=== PATIENT | female | born 1940 | race Caucasian/White ===

== ENCOUNTER 2017-01-09 03:08 | Emergency (ER) | payer MEDICARE ==
[~2017-01-09] VITALS: Ht 160 cm; Wt 46.0 kg
[~2017-01-09 03:08] MED LIST: BENZ1CAP34 PO; DOXY100T18 PO; FLON0.053; IPRAAER INH; LEVA500T PO; MEDR4PAK3 PO; OMPR20CCR PO; PRED50 PO; TRAM50 PO
[2017-01-09 03:11] VITALS: BP 167/83; PULSE 98; RESP 16; TEMP 98; O2SAT 96
[2017-01-09] MEDS ORDERED: PRIL20CA9 PO (03:24)
[2017-01-09 03:44] VITALS: RESP 16
[2017-01-09] MEDS ORDERED: SODIUM CHLOR 0.9% 1000 ML INJ 1,000 ML IV ONE (03:45)
[2017-01-09] MEDS ORDERED: SODIUM CHLORIDE 0.9% FLUSH 5 ML FLUSH IVF PRN (03:45)
[2017-01-09] MEDS ORDERED: HYDROmorphone HCL PF 1 MG/ML VIAL IVS ONE (03:45)
[2017-01-09] MEDS ORDERED: ONDANSETRON HCL 4 MG/2 ML VIAL IVP ONE (03:45)
[2017-01-09 04:15] VITALS: RESP 16
[2017-01-09] MEDS ORDERED: PROPOFOL 200 MG/20 ML AMP IV ONE (04:15)
--- NOTE | 2017-01-09 04:16 | RADRPT ---
EXAM DATE/TIME: 01/09/2017 03:55 [facility] COMPARISON: No previous studies available for comparison. INDICATIONS : Trauma, fall. MEDICAL HISTORY : None. SURGICAL HISTORY : None. ENCOUNTER: Initial ACUITY: 1 day PAIN SCORE: 8/10 LOCATION: Left wrist FINDINGS: Decreased bone mineralization. There is a comminuted and impacted fracture of the distal radial metap hysis with dorsal angulation. CONCLUSION: Distal radius fracture with dorsal angulation. Eddie Degroot MD on January 09, 2017 at 4:14 Board Certified Radiologist. This report was verified electronically.
--- NOTE | 2017-01-09 04:17 | RADRPT ---
EXAM DATE/TIME: 01/09/2017 03:57 [facility] COMPARISON: No previous studies available for comparison. INDICATIONS : Trauma, fall. MEDICAL HISTORY : None. SURGICAL HISTORY : None. ENCOUNTER: Initial ACUITY: 1 day PAIN SCORE: 8/10 LOCATION: Wrist. FINDINGS: Impacted and comminuted fracture of the distal radial metaphysis with mild displacement and slight do rsal angulation. Decreased bone density. CONCLUSION: Distal radius fracture. Eddie Degroot MD on January 09, 2017 at 4:15 Board Certified Radiologist. This report was verified electronically.
--- NOTE | 2017-01-09 04:17 | RADRPT ---
EXAM DATE/TIME: 01/09/2017 03:59 [facility] COMPARISON: No previous studies available for comparison. INDICATIONS : Trauma, fall. MEDICAL HISTORY : None. SURGICAL HISTORY : None. ENCOUNTER: Initial ACUITY: 1 day PAIN SCORE: 8/10 LOCATION: Left arm FINDINGS: Decreased bone density. No fracture or dislocation. CONCLUSION: No acute disease. Eddie Degroot MD on January 09, 2017 at 4:16 Board Certified Radiologist. This report was verified electronically.
[2017-01-09 04:33] VITALS: O2SAT 98
--- NOTE | 2017-01-09 05:19 | RADRPT ---
EXAM DATE/TIME: 01/09/2017 04:59 [facility] COMPARISON: FOREARM LEFT (2VWS), January 09, 2017, 3:57. INDICATIONS : Post reduction. MEDICAL HISTORY : None. SURGICAL HISTORY : None. ENCOUNTER: Initial ACUITY: 1 day PAIN SCORE: 5/10 LOCATION: Left wrist FINDINGS: Improved alignment of distal radial metaphysis fracture is noted with splint in place. There is sligh t dorsal displacement of the distal fracture fragment no significant angulation. CONCLUSION: Splint in place with improved alignment of distal radius fracture. Eddie Degroot MD on January 09, 2017 at 5:17 Board Certified Radiologist. This report was verified electronically.
[2017-01-09] MEDS ORDERED: TRAM50TA PO (05:34)
--- NOTE | 2017-01-09 05:35 | PD ---
HPI Chief Complaint: Fall Time Seen by Provider: 03:24 Travel History International Travel<30 days: No Contact w/Intl Traveler<30days: No Traveled to known affect area: No History of Present Illness HPI 76 yo F experienced mechanical fall landing on L outstretched hand causing sudden onset constant severe pain. No head injury/loc. No anticoagulation. PFSH Past Medical History Asthma: No Blood Disorders: No Cancer: No Cardiovascular Problems: No COPD: No Diabetes: No Diminished Hearing: No Endocrine: No Gastrointestinal Disorders: Yes GERD: Yes Genitourinary: No Hiatal Hernia: No Immune Disorder: No Implanted Vascular Access Dvce: No Musculoskeletal: No Neurologic: No Psychiatric: No Reproductive: No Respiratory: Yes (SMOKER) Immunizations Current: Yes Sleep Apnea: No Thyroid Disease: No Ulcer: No Tetanus Vaccination: Unknown Influenza Vaccination: No Menopausal: Yes Past Surgical History Abdominal Surgery: Yes (APPENDECTOMY) Appendectomy: Yes Cardiac Surgery: No Eye Surgery: Yes (JENNIFER CATARACT) Genitourinary Surgery: No Gynecologic Surgery: Yes (OVARIAN CYST REMOVED) Neurologic Surgery: No Oral Surgery: Yes (TONCILECTOMY) Thoracic Surgery: No Tonsillectomy: Yes Other Surgery: Yes (OVARY REMOVED 50 YRS AGO) Social History Alcohol Use: Yes (socially) Tobacco Use: Yes Substance Use: No Allergies-Medications (Allergen,Severity, Reaction): Coded Allergies: Penicillin (Verified Allergy, Severe, 01/09/17) Reported Meds & Prescriptions Reported Meds & Active Scripts Active Tramadol (Tramadol HCl) 50 Mg Tab 50 Mg PO Q8H PRN Reported Prilosec (Omeprazole) 20 Mg Cap 20 Mg PO DAILY Review of Systems Except as stated in HPI: all other systems reviewed are Neg General / Constitutional: No: Fever, Chills Physical Exam Narrative GENERAL: 76 yo F, pleasant, WNWD SKIN: Warm and dry. HEAD: Atraumatic. Normocephalic. EYES: Pupils equal and round. No scleral icterus. No injection or drainage. ENT: No nasal bleeding or discharge. Mucous membranes pink and moist. NECK: Trachea midline. No JVD. CARDIOVASCULAR: Regular rate and rhythm. RESPIRATORY: No accessory muscle use. Clear to auscultation. Breath sounds equal bilaterally. GASTROINTESTINAL: Abdomen soft, non-tender, nondistended. Hepatic and splenic margins not palpable. MUSCULOSKELETAL: Deformity distal radius on L. 2+ radial artery bilaterally. no gross deformity otherwise. NEUROLOGICAL: Awake and alert. No obvious cranial nerve deficits. Motor grossly within normal limits. Five out of 5 muscle strength in the arms and legs. Normal speech. PSYCHIATRIC: Appropriate mood and affect; insight and judgment normal. Data Data Last Documented VS Vital Signs Date Time Temp Pulse Resp B/P Pulse Ox O2 Delivery O2 Flow Rate FiO2 01/09/17 04:33 98 Nasal Cannula 4.00 01/09/17 04:15 16 01/09/17 03:11 98.0 98 167/83 Orders Forearm (2vws) (01/09/17 03:34) Hand, Limited (2vws) (01/09/17 03:34) Iv Access Insert/Monitor (01/09/17 03:34) Oximetry (01/09/17 03:34) Ecg Monitoring (01/09/17 03:34) Ondansetron Inj (Zofran Inj) (01/09/17 03:45) Sodium Chloride 0.9% Flush (Ns Flush) (01/09/17 03:45) Hydromorphone Pf Inj (Dilaudid Pf Inj) (01/09/17 03:45) Sodium Chlor 0.9% 1000 Ml Inj (Ns 1000 M (01/09/17 03:45) Elbow, Limited (Ap&Lat) (01/09/17 03:34) Propofol 200 Mg/20 Ml Inj (Diprivan 200 (01/09/17 04:15) Wrist, Complete (Itu9awb) (01/09/17 ) ^ Sling (01/09/17 04:48) MDM Medical Decision Making Medical Screen Exam Complete: Yes Emergency Medical Condition: Yes Differential Diagnosis r radius fracture, fall, nerve injury Narrative Course Last 24 hours Impressions Radius/Ulna X-Ray 01/09/17333 Signed Impressions: Service Date/Time: Monday, January 09, 2017 03:57 - CONCLUSION: Distal radius fracture. Eddie Degroot MD Hand X-Ray 01/09/17333 Signed Impressions: Service Date/Time: Monday, January 09, 2017 03:55 - CONCLUSION: Distal radius fracture with dorsal angulation. Eddie Degroot MD Elbow X-Ray 01/09/17333 Signed Impressions: Service Date/Time: Monday, January 09, 2017 03:59 - CONCLUSION: No acute disease. Eddie Degroot MD Wrist X-Ray 01/09/17 0000 Signed Impressions: Service Date/Time: Monday, January 09, 2017 04:59 - CONCLUSION: Splint in place with improved alignment of distal radius fracture. Eddie Degroot MD Closed reduction of distal radius fracture performed at bedside. Splint applied. F/u Dr Meadows as discussed. Diagnosis Primary Impression: Distal radius fracture, left Qualified Code: S52.502A - Closed fracture of distal end of left radius, unspecified fracture morphology, initial encounter Referrals: Benito Meadows MD 3 days Additional Instructions: You have a choice when it comes to health care, and we are glad that you chose [facility]. Hopefully, we have met your expectations on today's visit. You are welcome to return to [facility] at any time, as we are committed to meeting the health care needs of our community. Med/Other Pt SpecificInfo: Prescription(s) given Scripts Tramadol 50 Mg Tab50 Mg PO Q8H PRN (PAIN SCALE 6 TO 10) #15 TAB Ref 0 Prov:Gianluca Flores MD 01/09/17 Disposition: 01 DISCHARGE HOME Condition: Stable Gianluca Flores MD Jan 09, 2017 05:35
== END 2017-01-09 05:58 | disposition home or self-care (01) ==
LOC: NEPE 03:08
DX: S52.502A Unspecified fracture of the lower end of left radius, initial encounter for closed fracture (principal); Z72.0 Tobacco use; W19.XXXA Unspecified fall, initial encounter
CPT/HCPCS: 25605; 73070; 73090; 73110; 73120; 96361; 96374; 96375; 99152; 99283; J1170; J2405; J7030

== ENCOUNTER 2018-07-24 20:08 | Inpatient (IN) ==
[2018-07-24] MEDS ORDERED: oxyCODONE/Acetaminophen 10/325 Tablet PO ONE (22:13)
[2018-07-24] MEDS ORDERED: Morphine Inj 4 MG/ML Vial IV.PUSH ONE (22:18)
--- NOTE | 2018-07-24 23:01 | XR ---
EXAM DATE: 07/24/2018 10:53 PM EDT AGE/SEX: 78 years / Female INDICATIONS: Trauma. Patient fell at home today. CLINICAL DATA: This is the patient's initial encounter. Patient reports that signs and symptoms have been present for 1 day and indicates a pain score of 10/10. MEDICAL/SURGICAL HISTORY: None. None. COMPARISON: No prior exams available for comparison. FINDINGS: There is a oblique fracture through the distal metaphysis of the radius with moderate dorsal angulati on and questionable impaction. There is also a minimally displaced fracture of the ulnar styloid. The shaft of the radius and ulna are intact. In the soft tissues of the volar distal forearm, there is a linear calcific density which may represent a radiopaque foreign body. Advanced degenerative changes in the first CMC articulation CONCLUSION: 1. Colles' fracture with dorsal angulation and impaction. 2. Possible radiopaque foreign body in the volar soft tissues of the distal forearm. Electronically signed by: Nathan Torres MD 07/24/2018 11:00 PM EDT
--- NOTE | 2018-07-24 23:22 | ED ---
HPI General Chief Complaint: Extremity Injury, Upper Stated Complaint: arm injury Time Seen by Provider: 07/24/18 22:00 History of Present Illness HPI narrative: Patient fell on outstretched arm right-sided just prior to arrival and has obvious deformed forearm severe pain, 10/10 in elbow to forearm to wrist worse with any movement , x-ray done portable shows a very angulated distal radius and the ulnar distal fracture as well total displacement of the ulnar fracture component. with significant angulation , Pain 10/10 and Ortho called after splint placed . Morphine for pain prior to attempt to reduce in ER by orthopedics teacher Related Data Previous Rx's Medication Instructions Recorded hydrocodone-acetaminophen [[place]] 1 - 2 tab PO Q4-6H #50 tab 07/25/18 Allergies Allergy/AdvReac Type Severity Reaction Status Date / Time penicillin G Allergy Severe Anaphylaxis Verified 07/25/18 13:26 Review of Systems ROS: all other systems reviewed are negative Musculoskeletal Reports myalgias, Reports deformity and Reports joint swelling PMFSH Social History Social History Substance History: No History of Abuse Second Hand Smoke Exposure: Yes Smoking Status: Current every day smoker Tobacco Type: Cigarettes How Often Do You Have a Drink Containing Alcohol: 4 or more times a week Recent Travel in [facility] within the Last 8 Weeks: No Recent Out of Country Travel within the Last 8 Weeks: No Immunization History Tetanus Immunization: >5 Years Hx Influenza Vaccine This Season: No Exam Narrative Exam Narrative: GENERAL: appears to be in severe pain from R forearm fracture SKIN: Warm and dry. intact not an open fracture HEAD: Atraumatic. Normocephalic. EYES: Pupils equal and round. No scleral icterus. No injection or drainage. ENT: No nasal bleeding or discharge. Mucous membranes pink and moist. NECK: Trachea midline. No JVD. CARDIOVASCULAR: Regular rate and rhythm. RESPIRATORY: No accessory muscle use. Clear to auscultation. Breath sounds equal bilaterally. GASTROINTESTINAL: Abdomen soft, non-tender, nondistended. Hepatic and splenic margins not palpable. MUSCULOSKELETAL: Extremities Right arm deformity obvious severely painful to palpation or movement . NEUROLOGICAL: Awake and alert. No obvious cranial nerve deficits. Motor grossly within normal limits. Five out of 5 muscle strength in the arms and legs. Normal speech. PSYCHIATRIC: Appropriate mood and affect; insight and judgment normal. Procedures Orthopedic Splinting/Casting Injury #1: Side: right Upper Extremity Injury Location: forearm and wrist (right distal fore arm comminuted fracture with severe angulation sugar tongs placed by orthopedics teacher) Upper Extremity Immobilizer: sling/shoulder immobilizer and sugar tong splint Course Initial Documented Vital Signs Temperature 98.2 F 07/24/18 21:04 Pulse Rate 85 07/24/18 21:04 Respiratory Rate 16 07/24/18 21:04 Blood Pressure 143/63 H 07/24/18 21:04 Pulse Oximetry 97 07/24/18 21:04 Last Documented Vital Signs Temperature 98.2 F 07/25/18 12:00 Pulse Rate 111 H 07/25/18 12:00 Respiratory Rate 18 07/25/18 12:00 Blood Pressure 133/88 07/25/18 12:00 Pulse Oximetry 90 L 07/25/18 12:00 Medical Decision Making MDM Narrative Medical decision making narrative: Spoke to Ortho fashion merchandiser attending [employer] , he agrees pt need ORIF due to severe angulation and I admit to [facility] for orth[facility] to consult and take to [place] Medical Screen Exam Complete: Yes Emergency Medical Condition: Yes Differential Diagnosis Differential Diagnosis: fracture open vs closed comminuted vs non displaced vs intrarticular Lab Data Result diagrams: 07/25/18 01:20 07/25/18 01:20 Lab Results 07/25/18 07/25/18 07/25/18 Range/Units 01:20 01:20 01:20 WBC 5.6 (4.0-11.0) th/mm3 RBC 3.90 L (4.00-5.30) mil/mm3 Hgb 14.2 (11.6-15.3) gm/dL Hct 41.7 (35.0-46.0) % MCV 106.9 H (80.0-100.0) fL MCH 36.3 H (27.0-34.0) pg MCHC 34.0 (32.0-36.0) % RDW 13.6 (11.6-17.2) % Plt Count 249 (150-450) th/mm3 MPV 9.1 (7.0-11.0) fL Neut % (Auto) 54.6 (16.0-70.0) % Lymph % (Auto) 34.1 (9.0-44.0) % Cecil % (Auto) 9.0 H (0.0-8.0) % Eos % (Auto) 1.6 (0.0-4.0) % Baso % (Auto) 0.7 (0.0-2.0) % Neut # (Auto) 3.1 (1.8-7.7) th/mm3 Lymph # (Auto) 1.9 (1.0-4.8) th/mm3 Cecil # (Auto) 0.5 (0.0-0.9) th/mm3 Eos # (Auto) 0.1 (0.0-0.4) th/mm3 Baso # (Auto) 0.0 (0.0-0.2) th/mm3 WBC Differential . Differential Comment Auto diff final PT 9.4 L (9.8-11.6) sec INR 0.9 Ratio Sodium 137 (136-145) meq/L Potassium 4.8 (3.5-5.1) meq/L Chloride 95 L (98-107) meq/L Carbon Dioxide 26.6 (21.0-32.0) meq/L Anion Gap 15 (5-15) meq/L BUN 14 (7-18) mg/dL Creatinine 1.17 H (0.50-1.00) mg/dL Estimated GFR 45 L (>89) mL/min Random Glucose 64 L (74-106) mg/dL Calcium 9.3 (8.5-10.1) mg/dL Total Bilirubin 0.5 (0.2-1.0) mg/dL AST 76 H (15-37) U/L ALT 52 (10-53) U/L Alkaline Phosphatase 85 (45-117) U/L Total Protein 8.2 (6.4-8.2) g/dL Albumin 4.5 (3.4-5.0) g/dL Blood Type Blood Type Recheck Antibody Screen 07/25/18 Range/Units 01:45 WBC (4.0-11.0) th/mm3 RBC (4.00-5.30) mil/mm3 Hgb (11.6-15.3) gm/dL Hct (35.0-46.0) % MCV (80.0-100.0) fL MCH (27.0-34.0) pg MCHC (32.0-36.0) % RDW (11.6-17.2) % Plt Count (150-450) th/mm3 MPV (7.0-11.0) fL Neut % (Auto) (16.0-70.0) % Lymph % (Auto) (9.0-44.0) % Cecil % (Auto) (0.0-8.0) % Eos % (Auto) (0.0-4.0) % Baso % (Auto) (0.0-2.0) % Neut # (Auto) (1.8-7.7) th/mm3 Lymph # (Auto) (1.0-4.8) th/mm3 Cecil # (Auto) (0.0-0.9) th/mm3 Eos # (Auto) (0.0-0.4) th/mm3 Baso # (Auto) (0.0-0.2) th/mm3 WBC Differential Differential Comment PT (9.8-11.6) sec INR Ratio Sodium (136-145) meq/L Potassium (3.5-5.1) meq/L Chloride (98-107) meq/L Carbon Dioxide (21.0-32.0) meq/L Anion Gap (5-15) meq/L BUN (7-18) mg/dL Creatinine (0.50-1.00) mg/dL Estimated GFR (>89) mL/min Random Glucose (74-106) mg/dL Calcium (8.5-10.1) mg/dL Total Bilirubin (0.2-1.0) mg/dL AST (15-37) U/L ALT (10-53) U/L Alkaline Phosphatase (45-117) U/L Total Protein (6.4-8.2) g/dL Albumin (3.4-5.0) g/dL Blood Type A Positive Blood Type Recheck Required Antibody Screen Negative Imaging Data Radiologist's impression: Forearm X-Ray 07/24/18 22:11 CONCLUSION: 1. Colles' fracture with dorsal angulation and impaction. 2. Possible radiopaque foreign body in the volar soft tissues of the distal forearm. Wrist X-Ray 07/25/18 00:00 CONCLUSION: Status post ORIF with good anatomic alignment of the distal radius. Discharge Plan Discharge Disposition Patient Disposition: Discharge Home Discharge Condition Condition: Good Discharge Order Discharge Orders: Discharge Order (Routine); Ordered 07/25/18 Ordered By: Adrien Schneider Orthopedic Clear for Discharge (Routine); Ordered 07/25/18 Ordered By: Elijah Arce Discharge Details Date/Time: 07/26/18 16:00 Physicians Team ED Provider: Rigoberto Dudley Primary Care Provider: Griffin Aguayo Attending Provider: Adrien Schneider Other Providers: [facility],Insurance ; Elijah Arce Status ED Status: Left Department Discharge Information Discharge Date/Time: 07/25/18 03:03
[2018-07-24] MEDS ORDERED: HYDROmorphone PF Inj 2 MG/ML Vial IV.PUSH ONE ×2 (23:34)
[2018-07-25] MEDS ORDERED: Bisacodyl 10 MG Supp RECTAL PRN ×2 (01:11→10:29)
[2018-07-25] MEDS ORDERED: Acetaminophen 325 MG Tablet PO PRN (01:11)
[2018-07-25] MEDS ORDERED: Metoclopramide Inj 10 MG in Sodium Chlor 0.9% Inj 50 ML IV.SIG ONE (01:17)
--- NOTE | 2018-07-25 01:35 | P.HPIM ---
History of Present Illness Primary Care Physician: Griffin Aguayo MD History of Present Illness: This is a 78-year-old female with a PMH of COPD who was brought to the ER by EMS after a fall with severe right wrist pain. Pt was apparently trying to turn off the light in the garage when she had sudden slip and fall onto outstretched arm. No reported LOC or head trauma. Reports severe right wrist pain, 10/10, non-radiating, worse w/ movement. On arrival, BP 143/63, HR 85, O2 sat 97% on RA, Afebrile. Forearm X-ray w/ Colles' fracture w/ dorsal angulation and impaction, possible radiopaque foreign body in soft tissue of distal forearm. S/p splint in ER. Dr. Arce consulted, plan is for surgical intervention in am. Pt w/ significant pain complaints, s/p multiple doses of Dilaudid. - Diagnosis (1) Fall (2) Right wrist fracture (3) Intractable pain Review of Systems PAST FAMILY HISTORY: Reviewed. No h/o DM or CAD [facility] - History History Provided By: Patient, Friend - Medical History Medical History: Medical History (Last Updated 07/24/18 @ 21:06 by Della Rogel RN) COPD (chronic obstructive pulmonary disease) - Tobacco History Second Hand Smoke Exposure: Yes Tobacco Use In Past 30 Days: Yes Smoking Status: Current every day smoker Tobacco Type: Cigarettes - Alcohol History How Often Do You Have a Drink Containing Alcohol: 4 or more times a week - Substance Use History Substance History: No History of Abuse - Travel History Recent Travel in the [place] Within the Last 8 Weeks: No Recent Travel Out of the Country Within the Last 8 Weeks: No - Immunization History Tetanus Immunization: >5 Years Hx Influenza Vaccine This Season: No Medications and Allergies Active Medications: Active Medications Acetaminophen (Tylenol) 650 mg PO Q4H PRN PRN Reason: Temp > 100.4 Al Hydroxide/Mg Hydroxide (Milk Of Magnesia Liq) 30 ml PO Q12H PRN PRN Reason: Mild Constipation Bisacodyl (Dulcolax Supp) 10 mg RECTAL DAILY PRN PRN Reason: SEVERE CONSITIPATION Hydromorphone HCl (Dilaudid Pf Inj) 0.5 mg IV.PUSH Q4H PRN PRN Reason: PAIN 6-10 Sodium Chloride (Ns Inj) 1,000 mls @ 100 mls/hr IV.CONT .Q10H COLLETTE Metoclopramide HCl 10 mg/ (Sodium Chloride) 52 mls @ 104 mls/hr IV.SIG ONCE ONE ; Protocol Stop: 07/25/18 01:46 Lactulose (Lactulose Liq) 30 ml PO DAILY PRN PRN Reason: SEVERE CONSITIPATION Ondansetron HCl (Zofran Inj) 4 mg IV.PUSH Q6H PRN PRN Reason: NAUSEA OR VOMITING Senna/Docusate Sodium (Karma-Colace) 1 tab PO BID COLLETTE Sennosides (Senokot) 17.2 mg PO Q12H PRN PRN Reason: Moderate Constipation Allergies Allergy/AdvReac Type Severity Reaction Status Date / Time penicillin G Allergy Severe Unverified 06/30/17 23:28 Exam Vital signs: Vital Signs 07/24/18 21:04 07/24/18 23:23 Temperature 98.2 F Pulse Rate 85 Respiratory Rate 16 16 Blood Pressure 143/63 H Pulse Oximetry 97 Intake & Output 07/24/18 07/24/18 07/25/18 06:59 18:59 06:59 Weight 68 kg Narrative: PE: GENERAL: Pleasant elderly white female w/ moderate distress due to nausea/ vomiting from pain medication. SKIN: Focused skin assessment warm and dry. HEENT: PERRLA, EOMI. No scleral icterus or conjunctival pallor. No lid lag or facial droop. CARDIOVASCULAR: Regular rate and rhythm. No obvious murmurs to auscultation. No chest tenderness to palpation. RESPIRATORY: No obvious rhonchi or wheezing. Clear to auscultation. Breath sounds equal bilaterally. GASTROINTESTINAL: Abdomen soft, non-tender, nondistended. BS normal. MUSCULOSKELETAL: Extremities without clubbing, cyanosis, or edema. No obvious deformities. Decreased ROM of RUE due to injury, s/p splint. NEUROLOGICAL: Awake, alert and oriented x4. No focal neurologic deficits. Moving both upper and lower extremities spontaneously. PSYCHIATRIC: Appropriate mood and affect. Insight and judgment normal. Results - Imaging Impressions Forearm X-Ray 07/24/18 22:11 CONCLUSION: 1. Colles' fracture with dorsal angulation and impaction. 2. Possible radiopaque foreign body in the volar soft tissues of the distal forearm. Caprini VTE Risk Assessment Caprini VTE Risk Assessment: No/Low Risk (score <= 1) Caprini Risk Assessment Model: Point Value = 1 Point Value = 2 Point Value = 3 Point Value = 5 Age 41-60 Minor surgery BMI > 25 kg/m2 Swollen legs Varicose veins or History of unexplained or recurrent spontaneous Oral contraceptives or hormone replacement Sepsis (< 1 month) Serious lung disease, including pneumonia (< 1 month) Abnormal pulmonary function Acute myocardial infarction Congestive heart failure (< 1 month) History of inflammatory bowel disease Medical patient at bed rest Age 61-74 Arthroscopic surgery Major open surgery (> 45 min) Laparoscopic surgery (> 45 min) Malignancy Confined to bed (> 72 hours) Immobilizing plaster cast Central venous access Age >= 75 History of VTE Family history of VTE Factor V Leiden Prothrombin [id number] Lupus anticoagulant Anticardiolipin antibodies Elevated serum homocysteine Heparin-induced thrombocytopenia Other congenital or acquired thrombophilia Stroke (< 1 month) Elective arthroplasty Hip, pelvis, or leg fracture Acute spinal cord injury (< 1 month) Prophylaxis Regimen: Total Risk Factor Score Risk Level Prophylaxis Regimen 0-1 Low Early ambulation 2 Moderate Order ONE of the following: *Sequential Compression Device (SCD) *Heparin 5000 units SQ BID 3-4 Higher Order ONE of the following medications: *Heparin 5000 units SQ TID *Enoxaparin/Lovenox 40 mg SQ daily (WT < 150 kg, CrCl > 30 mL/min) *Enoxaparin/Lovenox 30 mg SQ daily (WT < 150 kg, CrCl > 10-29 mL/min) *Enoxaparin/Lovenox 30 mg SQ BID (WT < 150 kg, CrCl > 30 mL/min) AND/OR *Sequential Compression Device (SCD) 5 or more Highest Order ONE of the following medications: *Heparin 5000 units SQ TID (Preferred with Epidurals) *Enoxaparin/Lovenox 40 mg SQ daily (WT < 150 kg, CrCl > 30 mL/min) *Enoxaparin/Lovenox 30 mg SQ daily (WT < 150 kg, CrCl > 10-29 mL/min) *Enoxaparin/Lovenox 30 mg SQ BID (WT < 150 kg, CrCl > 30 mL/min) AND *Sequential Compression Device (SCD) Assessment and Plan - Assessment (1) Fall Code(s): W19.XXXA - Unspecified fall, initial encounter Status: Acute (2) Right wrist fracture Code(s): S62.101A - Fracture of unspecified carpal bone, right wrist, initial encounter for closed fracture Status: Acute (3) Intractable pain Code(s): R52 - Pain, unspecified Status: Acute - Plan A/P: 1. Fall: s/p mechanical slip and fall, no reported LOC or head trauma. 2. Right Wrist Fx: s/p fall on outstretched hand, X-ray w/ Colles' fracture with dorsal angulation and impaction, possible radiopaque foreign body in soft tissues of distal forearm, images reviewed. Dr. Arce consulted, plan is for surgical intervention in am. Check preop labs. Analgesics/antiemetics, NPO, IVF. 3. Intractable Pain: secondary to above, s/p multiple doses of Dilaudid IV in ER, now w/ nausea/vomiting from pain medication, continue w/ analgesics/ antiemetics as needed. 4. DVT Prophylaxis: Anticoagulation post op 5. Social work for d/c planning as needed 6. Case discussed w/ ER physician at length, labs/records/imaging reviewed by me.
[2018-07-25 01:36] LABS: Baso % (Auto) 0.7 % (0.0-2.0); Eos # (Auto) 0.1 th/mm3 (0.0-0.4); Eos % (Auto) 1.6 % (0.0-4.0); Hematocrit 41.7 % (35.0-46.0); Hemoglobin 14.2 gm/dL (11.6-15.3); Lymph # (Auto) 1.9 th/mm3 (1.0-4.8); Lymph % (Auto) 34.1 % (9.0-44.0); Mean Corpuscular Hemoglobin 36.3 pg (27.0-34.0); Mean Corpuscular Volume 106.9 fL (80.0-100.0); Mean Platelet Volume 9.1 fL (7.0-11.0); Mono # (Auto) 0.5 th/mm3 (0.0-0.9); Neut # (Auto) 3.1 th/mm3 (1.8-7.7); Neut % (Auto) 54.6 % (16.0-70.0); Platelet Count 249 th/mm3 (150-450); Red Cell Distribution Width 13.6 % (11.6-17.2); White Blood Count 5.6 th/mm3 (4.0-11.0)
[2018-07-25 01:47] LABS: INR 0.9 Ratio; Prothrombin Time 9.4 sec (9.8-11.6)
[2018-07-25 01:58] LABS: Alanine Aminotransferase 52 U/L (10-53); Alkaline Phosphatase 85 U/L (45-117); Total Protein 8.2 g/dL (6.4-8.2)
[2018-07-25 02:03] LABS: Albumin 4.5 g/dL (3.4-5.0); Anion Gap 15 meq/L (5-15); Aspartate Aminotransferase 76 U/L (15-37); Blood Urea Nitrogen 14 mg/dL (7-18); Calcium 9.3 mg/dL (8.5-10.1); Carbon Dioxide 26.6 meq/L (21.0-32.0); Chloride 95 meq/L (98-107); Glomerular Filtration Rate 45 mL/min (>89); Glucose,Random 64 mg/dL (74-106); Potassium 4.8 meq/L (3.5-5.1); Sodium 137 meq/L (136-145)
[2018-07-25] MEDS: Sod Chloride 0.9% Inj 1,000 ML IV.CONT SCH ×2 (03:28→14:54)
[2018-07-25] MEDS: HYDROmorphone PF Inj 2 MG/ML Vial IV.PUSH PRN ×2 (03:38→08:19)
[2018-07-25] MEDS ORDERED: Chlorhexidine Gluconate 2% 1 Pack (2 Cloths) TOPICAL ONE (06:38)
[2018-07-25] MEDS ORDERED: Sodium Chlor 0.9% Inj 500 ML IV.SIG SCH (07:00)
[2018-07-25] MEDS ORDERED: Senna/Docusate Sodium 8.6/50 MG Tablet PO SCH ×2 (09:00→21:00)
--- NOTE | 2018-07-25 09:25 | P.CONOP ---
[facility] Orthopedics Consult Note - [facility] Consult date: 07/25/18 Chief complaint: wrist fracture Narrative: This is a 78-year-old female with a PMH of COPD who was brought to the ER by EMS after a fall with severe right wrist pain. Pt was apparently trying to turn off the light in the garage when she had sudden slip and fall onto outstretched arm. No reported LOC or head trauma. Reports severe right wrist pain, 10/10, non-radiating, worse w/ movement. The patient had x-rays taken which showed a displaced fracture of the distal radius. The ER physician contacted me. We decided to have the patient admitted for surgical management for today. The patient noticed deformity about the wrist. She denies any numbness or tingling about the fingertips. Family history: No significant family history for diabetes or cardiovascular disease. Review of Systems All other systems reviewed negative except as stated in [facility] - History History Provided By: Patient - Medical History Medical History: Medical History (Last Reviewed 07/25/18 @ 09:21 by Elijah Arce MD) COPD (chronic obstructive pulmonary disease) - Tobacco History Second Hand Smoke Exposure: No Tobacco Use In Past 30 Days: Yes Smoking Status: Current every day smoker Tobacco Type: Cigarettes - Alcohol History How Often Do You Have a Drink Containing Alcohol: 4 or more times a week - Substance Use History Substance History: No History of Abuse - Travel History Recent Travel in the [place] Within the Last 8 Weeks: No Recent Travel Out of the Country Within the Last 8 Weeks: No - Immunization History Tetanus Immunization: >5 Years Hx Influenza Vaccine This Season: No Medications and Allergies Active Medications: Active Medications Acetaminophen (Tylenol) 650 mg PO Q4H PRN PRN Reason: Temp > 100.4 Al Hydroxide/Mg Hydroxide (Milk Of Tejinder Liq) 30 ml PO Q12H PRN PRN Reason: Mild Constipation Bisacodyl (Dulcolax Supp) 10 mg RECTAL DAILY PRN PRN Reason: SEVERE CONSITIPATION Hydromorphone HCl (Dilaudid Pf Inj) 0.5 mg IV.PUSH Q4H PRN PRN Reason: PAIN 6-10 Last Admin: 07/25/18 08:19 Dose: 0.5 mg Sodium Chloride (Ns Inj) 1,000 mls @ 100 mls/hr IV.CONT .Q10H COLLETTE Last Admin: 07/25/18 03:28 Dose: Not Given Lactated Ringer's (Lr 1000 Ml Inj) 1,000 mls @ 30 mls/hr IV.SIG .Q24H COLLETTE Stop: 07/26/18 06:44 Last Admin: 07/25/18 09:06 Dose: 30 mls/hr Sodium Chloride (Ns Inj) 500 mls @ 30 mls/hr IV.SIG .Q10H COL[place]TT[place] Lactulose (Lactulose Liq) 30 ml PO DAILY PRN PRN Reason: SEVERE CONSITIPATION Ondansetron HCl (Zofran Inj) 4 mg IV.PUSH Q6H PRN PRN Reason: NAUSEA OR VOMITING Last Admin: 07/25/18 08:18 Dose: 4 mg Senna/Docusate Sodium (Karma-Colace) 1 tab PO BID COLLETTE Sennosides (Senokot) 17.2 mg PO Q12H PRN PRN Reason: Moderate Constipation Allergies Allergy/AdvReac Type Severity Reaction Status Date / Time penicillin G Allergy Severe Unverified 06/30/17 23:28 Exam Vital signs: Vital Signs 07/24/18 21:04 07/24/18 23:23 07/25/18 01:36 Temperature 98.2 F Pulse Rate 85 99 H Respiratory Rate 16 16 16 Blood Pressure 143/63 H 137/72 Pulse Oximetry 97 96 07/25/18 03:00 Temperature 97.6 F Pulse Rate 79 Respiratory Rate 18 Blood Pressure 145/67 H Pulse Oximetry 97 Intake & Output 07/24/18 07/25/18 07/25/18 18:59 06:59 18:59 Intake Total 52 / 52 Balance 52 / 52 Weight 42.9 kg Intake: IV 52 / 52 Reglan Inj 10 MG In NS Inj 50 52 / 52 ML @ 104 mls/hr IV.SIG ONCE ONE Rx#:[id number] Oral 0 / 0 Other: # Voids 0 Date of Last Bowel Movement 07/24/18 # Bowel Movements 0 Weight On Admission 42.9 kg Narrative: GENERAL: The patient is awake, alert and oriented x3. The patient is no significant distress. PSYCHIATRIC: Normal affect, insight, and judgment. HEENT: Head is atraumatic. Oropharynx is moist. Extraocular muscles are intact. NECK: Non-tender and supple. LUNGS: No audible wheezing. He has normal inspiratory effort with no signs of dyspnea HEART: Regular rate and rhythm. ABDOMEN: Soft, nontender, and nondistended. BACK: No CVA tenderness. EXTREMITIES/SKIN/NEURO/VASCULAR: The right upper extremity is currently splinted. She has brisk capillary refill of the fingertips. She can move the fingers well. There is not a significant amount of swelling about the fingers. She has normal sensation distally. The right shoulder has no tenderness. The bilateral lower extremities and left upper extremity have no tenderness to the major bony prominences. There are no significant wounds noted about the skin. Results - Labs Result Diagrams: 07/25/18 01:20 07/25/18 01:20 Labs: Laboratory Results - last 24 hr 07/25/18 07/25/18 07/25/18 01:20 01:20 01:20 WBC 5.6 RBC 3.90 L Hgb 14.2 Hct 41.7 MCV 106.9 H MCH 36.3 H MCHC 34.0 RDW 13.6 Plt Count 249 MPV 9.1 Neut % (Auto) 54.6 Lymph % (Auto) 34.1 [place] % (Auto) 9.0 H Eos % (Auto) 1.6 Baso % (Auto) 0.7 Neut # (Auto) 3.1 Lymph # (Auto) 1.9 [place] # (Auto) 0.5 Eos # (Auto) 0.1 Baso # (Auto) 0.0 WBC Differential . Differential Comment Auto diff final PT 9.4 L INR 0.9 Sodium 137 Potassium 4.8 Chloride 95 L Carbon Dioxide 26.6 Anion Gap 15 BUN 14 Creatinine 1.17 H Estimated GFR 45 L Random Glucose 64 L Calcium 9.3 Total Bilirubin 0.5 AST 76 H ALT 52 Alkaline Phosphatase 85 Total Protein 8.2 Albumin 4.5 Blood Type Blood Type Recheck Antibody Screen 07/25/18 01:45 WBC RBC Hgb Hct MCV MCH MCHC RDW Plt Count MPV Neut % (Auto) Lymph % (Auto) [place] % (Auto) Eos % (Auto) Baso % (Auto) Neut # (Auto) Lymph # (Auto) [place] # (Auto) Eos # (Auto) Baso # (Auto) WBC Differential Differential Comment PT INR Sodium Potassium Chloride Carbon Dioxide Anion Gap BUN Creatinine Estimated GFR Random Glucose Calcium Total Bilirubin AST ALT Alkaline Phosphatase Total Protein Albumin Blood Type A Positive Blood Type Recheck Required Antibody Screen Negative - Diagnostic results Imaging: Impressions Forearm X-Ray 07/24/18 22:11 CONCLUSION: 1. Colles' fracture with dorsal angulation and impaction. 2. Possible radiopaque foreign body in the volar soft tissues of the distal forearm. I have reviewed the images for this radiology study. I agree with the interpretation given by the radiologist. Assessment and Plan - Assessment and Plan 78-year-old female with history of COPD and chronic active smoking. Right distal radius fracture displaced and angulated. We discussed that this is a serious condition effecting this patient's extremity. Nonoperative and operative options were discussed and reviewed. Potential consequences of both of these options were reviewed. The patient understands that with nonoperative management she would have chronic deformity about the wrist which also increases chance for having functional impairment including weakness of the hand and wrist, chronic pain, and potentially development of arthritic change about the wrist. We discussed the options for surgical management for ORIF including the risks and benefits and the postoperative rehabilitation in detail. The patient would like to move forward with urgent surgical management for this condition. This is surgery should be considered non-elective, given that this patient presented emergently to the hospital, and the decision to proceed with surgery was derived from this presentation. Significantly delaying surgery ( other than for medical clearance) has the potential to adversely effect the outcome for this patient's extremity. Management of pain associated with surgery will likely require the use of parental controlled substances. The risks and benefits of surgical management have been discussed in detail. The risks of surgery include, but are not limited to, injury to nerves, blood vessels, bleeding, infection, non-healing; loss of range on motion, dysfunction or weakness of the associated joints; blood clots, pneumonia, stroke, heart attack, and . - Attending Attestation Attending Attestation: A mid level provider in my office, nurse practitioner or PA, may see this patient on a follow up basis and continue to implement the plan including: starting or adjusting medications, injections of muscle, tendons, bursa or joints, cast application, orthotic or brace application, physical therapy, further radiographic studies including X-ray, MRI, CT, ultrasound or bone scan , vascular studies, neurological studies, or other specialist consultations, and proceeding with surgical management as appropriate.
[2018-07-25] MEDS ORDERED: Lidocaine PF 1% Inj 5 ML Syringe INFILTRATN ONE (09:28)
[2018-07-25] MEDS ORDERED: Succinylcholine Inj 200 MG/10 ML Vial IV.PUSH ONE (09:28)
[2018-07-25] MEDS ORDERED: Clindamycin Inj 600 MG/4 ML Vial ONE (09:33)
[2018-07-25] MEDS ORDERED: Ketamine Inj 500 MG/10 ML Vial ONE (09:43)
[2018-07-25] MEDS ORDERED: Bupivacaine/Epinephrine 0.5% Inj 50 ML Vial ONE (09:53)
[2018-07-25] MEDS ORDERED: Bupivacaine/Epinephrine Inj 0.25% 50 ML Vial ONE (09:54)
[2018-07-25] MEDS ORDERED: Morphine Inj 4 MG/ML Vial IV.PUSH PRN (10:29)
[2018-07-25] MEDS ORDERED: Aluminum/Magnesium/Simethacone Susp 30 ML UDC PO PRN (10:29)
[2018-07-25] MEDS ORDERED: Post-op Orders (for Pharmacy) OTHER STA (10:29)
--- NOTE | 2018-07-25 10:40 | P.OP ---
- Preoperative Diagnosis (1) Right wrist fracture Comment: Right wrist extra-articular distal radius fracture, displaced Postoperative Diagnosis: Same Date of procedure: 07/25/18 Procedure: Right distal radius open reduction and internal fixation of extra-articular fracture Surgeon: Elijah Arce MD Librarian School: [employer] The surgical procedure was assisted by my Advanced Registered Nurse Practitioner. My FOOD STYLIST presence was necessary throughout this case for the manipulation and positioning of the surgical extremity. My FOOD STYLIST was assisting me throughout the duration of this procedure. The skill set of an Advance Registered Nurse Practitioner was medically necessary to complete this procedure. During the surgical case, the surgical physician assistant was working at the back table and the Advance Registered Nurse Practitioner was directly assisting me. Operation and Findings: Tourniquet time: 17 minutes at 250 mmHg of pressure Estimated blood loss: 10 cc The patient received intravenous vancomycin with clindamycin. After the appropriate anesthesia was administered, the patient's arm was prepped and draped in the usual sterile fashion. Local anesthetic was given, and the arm was exsanguinated. The tourniquet was raised to 250 mmHg of pressure. We made a standard incision over the volar aspect of the forearm. We then dissected through the flexor carpi radialis sub- sheath. The pronator quadratus was reflected. We now visualized the distal radius fracture very well. The fracture was anatomically reduced both visually and via fluoroscopy. We provisionally held the fracture reduced and then applied a Synthes precontoured distal radius plate into the appropriate position. The plate was secured to the distal radius first with the sliding screw hole. This was then followed by locking screws distally and proximally. We took final fluoroscopic imaging of the wrist. We found no intra-articular penetration of the screws. The patient had full range of motion of the wrist with no crepitus. The tourniquet was released and hemostasis was achieved. The patient had a 2+ radial pulse. We irrigated the incision thoroughly. We then closed skin with 2 -0 Vicryl followed by 3-0 nylon. The arm was dressed and a volar splint was applied. The postoperative plan is to start early range of motion of the wrist.
--- NOTE | 2018-07-25 10:59 | XR ---
EXAM DATE: 07/25/2018 10:55 AM EDT AGE/SEX: 78 years / Female INDICATIONS: ORIF right wrist. CLINICAL DATA: This is the patient's initial encounter. Patient reports that signs and symptoms have been present for 1 day and indicates a pain score of Nonresponsive. MEDICAL/SURGICAL HISTORY: None. None. [place] [facility] [place]. . FINDINGS: 2 views of the postoperative right wrist demonstrate surgical plate and screws stabilizing a comminut ed fracture of the distal radius with good anatomic alignment. CONCLUSION: Status post ORIF with good anatomic alignment of the distal radius. Electronically signed by: Cookie Armando MD 07/25/2018 10:58 AM EDT
[2018-07-25] MEDS ORDERED: *morphine SULFATE 10 MG/ML PERIprocedure ONLY ONE (11:01)
--- NOTE | 2018-07-25 11:15 | P.PN ---
Subjective Interval history: Follow-up Right Wrist Fx July 25, 2018-patient seen and examined; complaints of nausea without any emesis. Currently n.p.o. Plan for right wrist repair by orthopedic surgery today. Case discussed with Queenie, who stated patient lives with her and will be taking care of her when she is discharged. Physical Exam Vital signs: Vital Signs 07/24/18 21:04 07/24/18 23:23 07/25/18 01:36 Temperature 98.2 F Pulse Rate 85 99 H Respiratory Rate 16 16 16 Blood Pressure 143/63 H 137/72 Pulse Oximetry 97 96 07/25/18 03:00 07/25/18 08:00 Temperature 97.6 F 97.7 F Pulse Rate 79 84 Respiratory Rate 18 18 Blood Pressure 145/67 H 152/66 H Pulse Oximetry 97 91 L Intake & Output 07/24/18 07/25/18 07/25/18 18:59 06:59 18:59 Intake Total 52 52 600 / 600 Output Total 10 Balance 52 52 590 / 590 Weight 42.9 kg Intake: IV 52 Reglan Inj 10 MG In NS Inj 50 / 52 ML @ 104 mls/hr IV.SIG ONCE ONE Rx#:[id number] Oral 0 / 0 Anesthesia Amount 600 / 600 Output: Estimated Blood Loss Other: # Voids 0 Date of Last Bowel Movement 07/24/18 # Bowel Movements 0 Weight On Admission 42.9 kg Narrative: GENERAL: NAD SKIN: Warm and dry. HEAD: Normocephalic. EYES: No scleral icterus. No injection or drainage. NECK: Supple, trachea midline. No JVD or lymphadenopathy. CARDIOVASCULAR: Regular rate and rhythm without murmurs, gallops, or rubs. RESPIRATORY: Breath sounds equal bilaterally. No accessory muscle use. GASTROINTESTINAL: Abdomen soft, non-tender, nondistended. MUSCULOSKELETAL: No cyanosis, or edema. Right Wrist Fx in splint-neurovascular intact BACK: Nontender without obvious deformity. No CVA tenderness. Results - Labs CBC & Chem 7: 07/25/18 01:20 07/25/18 01:20 Laboratory Results - last 24 hr 07/25/18 07/25/18 07/25/18 01:20 01:20 01:20 WBC 5.6 RBC 3.90 L Hgb 14.2 Hct 41.7 MCV 106.9 H MCH 36.3 H MCHC 34.0 RDW 13.6 Plt Count 249 MPV 9.1 Neut % (Auto) 54.6 Lymph % (Auto) 34.1 [place] % (Auto) 9.0 H Eos % (Auto) 1.6 Baso % (Auto) 0.7 Neut # (Auto) 3.1 Lymph # (Auto) 1.9 [place] # (Auto) 0.5 Eos # (Auto) 0.1 Baso # (Auto) 0.0 WBC Differential . Differential Comment Auto diff final PT 9.4 L INR 0.9 Sodium 137 Potassium 4.8 Chloride 95 L Carbon Dioxide 26.6 Anion Gap 15 BUN 14 Creatinine 1.17 H Estimated GFR 45 L Random Glucose 64 L Calcium 9.3 Total Bilirubin 0.5 AST 76 H ALT 52 Alkaline Phosphatase 85 Total Protein 8.2 Albumin 4.5 Blood Type Blood Type Recheck Antibody Screen 07/25/18 01:45 WBC RBC Hgb Hct MCV MCH MCHC RDW Plt Count MPV Neut % (Auto) Lymph % (Auto) [place] % (Auto) Eos % (Auto) Baso % (Auto) Neut # (Auto) Lymph # (Auto) [place] # (Auto) Eos # (Auto) Baso # (Auto) WBC Differential Differential Comment PT INR Sodium Potassium Chloride Carbon Dioxide Anion Gap BUN Creatinine Estimated GFR Random Glucose Calcium Total Bilirubin AST ALT Alkaline Phosphatase Total Protein Albumin Blood Type A Positive Blood Type Recheck Required Antibody Screen Negative - Imaging Impressions Forearm X-Ray 07/24/18 22:11 CONCLUSION: 1. Colles' fracture with dorsal angulation and impaction. 2. Possible radiopaque foreign body in the volar soft tissues of the distal forearm. Wrist X-Ray 07/25/18 00:00 CONCLUSION: Status post ORIF with good anatomic alignment of the distal radius. Assessment and Plan - Assessment (1) Fall Code(s): W19.XXXA - Unspecified fall, initial encounter Status: Acute (2) Right wrist fracture Code(s): S62.101A - Fracture of unspecified carpal bone, right wrist, initial encounter for closed fracture Status: Acute (3) Intractable pain Code(s): R52 - Pain, unspecified Status: Acute - Plan 78-year-old female with 1. Fall: s/p mechanical slip and fall, no reported LOC or head trauma. 2. Right Wrist Fx: s/p fall on outstretched hand, X-ray w/ Colles' fracture with dorsal angulation and impaction, possible radiopaque foreign body in soft tissues of distal forearm. Dr. Arce consulted, plan is for surgical intervention this am. Analgesics/antiemetics, NPO, IVF. 3. Intractable Pain: secondary to above, s/p multiple doses of Dilaudid IV in ER, continue w/ analgesics/antiemetics as needed. 4. DVT Prophylaxis: Anticoagulation post op Discharge patient to home Condition on discharge: Improved Regular Diet as tolerated Ad Kathrine activity Rx written:see EMR Follow-up with primary care physician/Ortho in -2 weeks
--- NOTE | 2018-07-25 12:42 | ECG ---
Date Performed: 07/25/2018 Time Performed: 08:53:19 PTAGE: 78 years EKG: SINUS TACHYCARDIA POSSIBLE LEFT ATRIAL ENLARGEMENT POSSIBLE RIGHT VENTRICULAR CONDUCTION DE LAY ST DEPRESSION, CONSIDER SUBENDOCARDIAL INJURY Compared to previous tracing ST segment depression across anterior precordium is now present, consider anterior ischemia ABNORMAL ECG PREVIOUS TRACING : 11/14/2013 21.57 DOCTOR: Alberto Olmstead Interpretating Date/Time 07/25/2018 12:39:10
[2018-07-25] MEDS ORDERED: Clindamycin 600 mg/NS Premix 600 MG/50 ML PIGGYBACK IV.SIG SCH (14:00)
[2018-07-25] MEDS ORDERED: Multivitamin/Minerals Therapeutic Tablet PO SCH (21:00)
== END 2018-07-25 16:11 | disposition home health service (06) ==
LOC: NEDA 20:08 → NEPE 20:08 → OBSVTOIN 07-25 01:11 → N06 07-25 02:27
PROVIDERS: ADMIT Hospitalist; ATTEND Hospitalist